=== PATIENT | male | born 1980 | race Hispanic/Latino ===

== ENCOUNTER 2019-03-21 06:57 | Inpatient (IN) | payer OTHER ==
[~2019-03-21] VITALS: Ht 177.8 cm; Wt 102.1 kg
--- OUTSIDE RECORDS SUMMARY | 2019-03-21 07:00 | XMS REPORT ---
Author Author [facility] Address Unknown Phone Unavailable Care Team Providers Care Case Technician Name Role Phone DR FLORI ANDERSON Unavailable Unavailable Problems This patient has no known problems. Allergies, Adverse Reactions, Alerts This patient has no known allergies or adverse reactions. Medications This patient has no known medications. Encounters Start Date/Time End Date/Time Encounter Type Admission Type Attending Clinicians Care Facility Care Department Encounter ID 2017-09-16 04:38:00 2017-09-16 08:15:00 Outpatient C FLORI ANDERSON [facility] [place] [facility] [id number]
[2019-03-21] MEDS ORDERED: MORPHINE SULFATE 2 MG/ML SYR 1ML IV STA ×2 (07:20→09:43)
[2019-03-21] MEDS ORDERED: ONDANSETRON HCL INJ 2MG/ML 2ML 2 MG/ML VIAL IV STA (07:20)
[2019-03-21] MEDS ORDERED: SODIUM CHLORIDE 0.9% 1000ML 1,000 ML IV STA (07:20)
[2019-03-21] MEDS ORDERED: DIATRIZOATE MEGL/DIATRIZOA SOD 30 ML BTL PO ONE (07:25)
--- NOTE | 2019-03-21 07:30 | NUR ---
INFORMED OF NEED FOR UA. CUP GIVEN. STATES CANT VOID AT THIS TIME. DECLINED CATHETER.
--- NOTE | 2019-03-21 07:37 | NUR ---
NOTIFIED CT PT READY
[2019-03-21 07:42] LABS: BASOPHILS % 0.1 % (0.0-1.0); EOSINOPHILS # (AUTO) 0.1 (0.0-0.4); EOSINOPHILS % 1.2 % (0.0-6.0); HEMATOCRIT 41.7 % (38.2-49.6); HEMOGLOBIN 14.7 g/dL (14.0-18.0); LYMPHOCYTES # (AUTO) 0.8 (1.0-3.2); LYMPHOCYTES % 10.7 % (18.0-39.1); MEAN CORPUSCULAR HEMOGLOBIN 31.1 pg (28-32); MEAN CORPUSCULAR HGB CONC 35.3 g/dL (31-35); MEAN CORPUSCULAR VOLUME 88.2 fL (81-99); MONOCYTES # (AUTO) 0.6 (0.2-0.8); MONOCYTES % 8.3 % (4.4-11.3); NEUTROPHILS % 79.3 % (38.7-80.0); PLATELET COUNT 149 x10e3/uL (140-360); RED BLOOD COUNT 4.73 x10e6/uL (4.3-5.7); RED CELL DISTRIBUTION WIDTH 11.9 % (11.7-14.4)
[2019-03-21 08:02] LABS: ALANINE AMINOTRANSFERASE 208 IU/L (0-55); ALBUMIN 3.6 g/dL (3.5-5.0); ALKALINE PHOSPHATASE 89 IU/L (40-150); ANION GAP 14.9 mmol/L (8-16); BLOOD UREA NITROGEN 7 mg/dL (7-26); BUN/CREATININE RATIO 7 (6-25); CALCIUM 9.6 mg/dL (8.4-10.2); CARBON DIOXIDE 23 mmol/L (22-29); CHLORIDE 103 mmol/L (98-107); CREATININE, SERUM 0.98 mg/dL (0.72-1.25); EST GLOMERULAR FILTRATION RATE > 60 ML/MIN (60-); GLUCOSE 120 mg/dL (74-118); POTASSIUM 3.9 mmol/L (3.5-5.1); SODIUM 137 mmol/L (136-145)
[2019-03-21 08:55] LABS: BILIRUBIN,URINE NEGATIVE (NEGATIVE); CLARITY,URINE CLEAR (CLEAR); COLOR,URINE YELLOW (YELLOW); KETONES,URINE NEGATIVE (NEGATIVE); LEUKOCYTE ESTERASE ,URINE NEGATIVE (NEGATIVE); NITRITE,URINE NEGATIVE (NEGATIVE); PROTEIN,URINE DIPSTICK NEGATIVE (NEGATIVE); URINE UROBILINOGEN 0.2 mg/dL (0.2 - 1)
--- NOTE | 2019-03-21 08:59 | Diagnostic Imaging Report ---
EXAM: CT Abdomen and Pelvis WITHOUT intravenous contrast INDICATION: Hematemesis, abdominal pain COMPARISON: None. TECHNIQUE: Abdomen and pelvis were scanned utilizing a multidetector helical scanner from the lung base to the pubic symphysis without administration of IV contrast. Coronal and sagittal reformations were obtained. IV CONTRAST: None ORAL CONTRAST: Water COMPLICATIONS: None RADIATION DOSE: Total DLP: 828.4 mGy*cm Dose modulation, iterative reconstruction, and/or weight based adjustment of the mA/kV was utilized to reduce the radiation dose to as low as reasonably achievable. FINDINGS: LOWER THORAX: Normal. HEPATOBILIARY: Diffuse hepatic steatosis. Hepatomegaly to 21 cm. No focal liver lesion. Unremarkable gallbladder. SPLEEN: No splenomegaly. PANCREAS: No focal masses or ductal dilatation. ADRENALS: No adrenal nodules. KIDNEYS/URETERS: No hydronephrosis, stones, or solid mass lesions. PELVIC ORGANS/BLADDER: Unremarkable. PERITONEUM / RETROPERITONEUM: No free air or fluid. LYMPH NODES: No lymphadenopathy. VESSELS: Unremarkable. GI TRACT: Sigmoid diverticulosis with focal area of wall thickening associated with several diverticulum in the mid sigmoid colon with adjacent pericolonic fat stranding. Small foci of extraluminal free air (series 2 image 77). No focal drainable fluid collection. BONES AND SOFT TISSUES: No acute osseous injury. No suspicious lytic or blastic lesions. IMPRESSION: Acute sigmoid diverticulitis with small foci of extraluminal air anteriorly consistent with perforation. No drainable diverticular abscess. Hepatomegaly and diffuse hepatic steatosis. Signed by: Geni Paul MD on 03/21/2019 8:55 AM
[2019-03-21] MEDS ORDERED: LEVOFLOXACIN 750MG/D5W 150ML 150 ML IV STA (09:07)
[2019-03-21 09:15] LABS: BACTERIA,URINE FEW /HPF; EPITHELIAL CELLS,URINE FEW /LPF; MUCUS,URINE RARE (RARE); WBC,URINE (MAN) 0-5 /HPF (0-5)
[2019-03-21] MEDS ORDERED: MORPHINE SULFATE 2 MG/ML SYR 1ML IV PRN (10:15)
--- NOTE | 2019-03-21 10:24 | NUR ---
dr. haroon ovalle in room with pt
--- NOTE | 2019-03-21 11:20 | Consultation ---
DATE OF CONSULTATION: REASON FOR CONSULTATION: Diverticulitis. HISTORY OF PRESENT ILLNESS: The patient is a pleasant 38-year-old male admitted to the hospital complaining of abdominal pain, located in the left lower quadrant, associated with nausea and vomiting. No diarrhea.Low grade temperature. No chills. The patient, in the past, had an episode of diverticulitis that did not require hospitalization. After he felt the yesterday , he thought he could have another bout of diverticulitis the reason for which he came to the hospital. In the emergency room, he was evaluated, had a CT scan that revealed sigmoid diverticulitis with small focus of air. No abscess. No drainable collection. White count was normal. PAST MEDICAL HISTORY: Unremarkable. PAST SURGICAL HISTORY: He has no previous surgeries. MEDICATIONS: He does not take any medicines. ALLERGIES: HE HAS NO KNOWN ALLERGIES. SOCIAL HISTORY: Does not drink. Does not smoke. PHYSICAL EXAMINATION: GENERAL: Reveals a 38-year-old male, in no acute distress. HEAD, EYES, EARS, NOSE, AND THROAT: Unremarkable. LUNGS: Clear. HEART: Reveals regular sinus rhythm. ABDOMEN: Soft and nontender. Examination of the abdomen reveals bowel sounds are present. There are no palpable masses. There is some tenderness on deep palpation in the left lower quadrant, but no rebound. EXTREMITIES: Reveal no clubbing, cyanosis, or edema. LABORATORY DATA: Has normal CBC and normal electrolytes. ASSESSMENT: Acute diverticulitis, uncomplicated. PLAN: The plan is to admit. Continue IV antibiotics. We will follow up the patient along with you. Thank you very much for the courtesy of this consultation. MD ZOIE Abreu/GABRIELLE /[id number] SUNG
[2019-03-21] MEDS: SODIUM CHLORIDE 0.9% 1000ML 1,000 ML IV SCH ×2 (12:05→18:40)
[2019-03-21] MEDS: METRONIDAZOLE 500MG/NS 100ML 100 ML IV SCH ×2 (12:05→19:37)
--- NOTE | 2019-03-21 12:25 | NUR ---
RCD PT FROM ER BY BED PT IS ALERT AND ORIENTED VITALS CHECKED PT RESTING ON BED ADMISSION ASSESSMENT DONE PT SAID STARTED THE ABDOMINAL PAIN ON TUESDAY WITH NAUSEA ,VOMITING AND FEVER AND DIARRHEA NOW HE DENIED NAUSEA,VOMITING AND DIARRHEA HE C/O ABDOMINAL PAIN ON LEFT SIDE OF ABDOMEN PT NPO AND ON IVFLUID AND IV ANTIBIOTICS FAMILY AT BED SIDE BED LOW AND LOCKED CALL LIGHT IN REACH
[2019-03-21 14:00] VITALS: BP 138/85
--- NOTE | 2019-03-21 14:00 | NUR ---
SCDS ON BOTH LEGS
[2019-03-21 15:00] VITALS: BP 122/84
--- NOTE | 2019-03-21 15:01 | NUR ---
H&P cc: abdominal pain HPI: 38yoM, PCP at [place], developed fever for 4 days. ALso severe abdominal pain. Found to have acute diverticulitis. Pt dx with diverticulosis 1.5 years ago. PMH: diverticulosis dx 2017 PSHxx: lower back, B/L legs Allergies; see emr FH/SH: ; no cigs meds; see MAR ROS: no cp/sob/dizziness/SHOOK/vision changes/skin rash/back pain v/s; revd PE tired appearing anicteric ns1s2 mod bs soft ND; LEFT LOWER ABDOMEN TENDER no e/t skin dry n. affect labs/meds; revd A/P: Perforated sigmoid diverticulitis Hepatomegaly Obesity BMI 32.3 PLAN IV abx; IVF: Sx consult; GI consult SCD/ppi Dispo: Sandeep Bauer MD, PhD.
[2019-03-21 15:16] LABS: CHOL/HDL RATIO 8.6 (3.9-4.7)
[2019-03-21 15:38] VITALS: BP 122/84
[2019-03-21] MEDS: ONDANSETRON HCL INJ 2MG/ML 2ML 2 MG/ML VIAL IV PRN ×2 (17:35→21:21)
[2019-03-21] MEDS: HYDROMORPHONE 1MG/1ML INJ IV PRN ×2 (17:35→21:21)
[2019-03-21] MEDS: PIPER-TAZ 3.375 GM 50 ML IV SCH (17:44)
--- NOTE | 2019-03-21 19:05 | NUR ---
PT RESTING ON BED BED SIDE REPORT GIVEN TO ONCOMING NURSE
[2019-03-21 20:00] VITALS: BP 115/68
[2019-03-21 21:00] VITALS: BP 115/68
[2019-03-22] VITALS (8 sets, daily range): BP systolic 115–135; BP diastolic 70–83
[2019-03-22] MEDS: PIPER-TAZ 3.375 GM 50 ML IV SCH ×5 (00:06→23:59)
[2019-03-22] MEDS ORDERED: ZOLPIDEM TARTRATE 5 MG TAB PO PRN (00:45)
--- NOTE | 2019-03-22 00:47 | NUR ---
Dr. España here for rounding. Orders received.
[2019-03-22] MEDS: MELATONIN 5 MG TABLET PO PRN ×2 (01:02→22:16)
[2019-03-22] MEDS: SODIUM CHLORIDE 0.9% 1000ML 1,000 ML IV SCH ×3 (04:34→14:40)
[2019-03-22] MEDS: METRONIDAZOLE 500MG/NS 100ML 100 ML IV SCH ×3 (04:34→20:31)
[2019-03-22 05:16] LABS: BASOPHILS % 0.2 % (0.0-1.0); EOSINOPHILS # (AUTO) 0.1 (0.0-0.4); HEMATOCRIT 35.6 % (38.2-49.6); HEMOGLOBIN 12.2 g/dL (14.0-18.0); MEAN CORPUSCULAR HEMOGLOBIN 31.2 pg (28-32); MEAN CORPUSCULAR HGB CONC 34.3 g/dL (31-35); MONOCYTES # (AUTO) 0.8 (0.2-0.8); MONOCYTES % 12.7 % (4.4-11.3); NEUTROPHILS # (AUTO) 4.2 (2.1-6.9); NEUTROPHILS % 67.6 % (38.7-80.0); PLATELET COUNT 145 x10e3/uL (140-360); RED BLOOD COUNT 3.91 x10e6/uL (4.3-5.7); RED CELL DISTRIBUTION WIDTH 12.1 % (11.7-14.4)
[2019-03-22] MEDS: ONDANSETRON HCL INJ 2MG/ML 2ML 2 MG/ML VIAL IV PRN ×2 (05:34→22:17)
[2019-03-22] MEDS: HYDROMORPHONE 1MG/1ML INJ IV PRN ×2 (05:34→21:00)
[2019-03-22 05:44] LABS: ALANINE AMINOTRANSFERASE 117 IU/L (0-55); ALBUMIN 2.9 g/dL (3.5-5.0); ALBUMIN/GLOBULIN RATIO 0.9 (0.8-2.0); ALKALINE PHOSPHATASE 74 IU/L (40-150); ANION GAP 12.8 mmol/L (8-16); BLOOD UREA NITROGEN 8 mg/dL (7-26); BUN/CREATININE RATIO 8 (6-25); CALCIUM 9.1 mg/dL (8.4-10.2); CARBON DIOXIDE 27 mmol/L (22-29); CHLORIDE 102 mmol/L (98-107); CREATININE, SERUM 1.04 mg/dL (0.72-1.25); EST GLOMERULAR FILTRATION RATE > 60 ML/MIN (60-); GLUCOSE 99 mg/dL (74-118); POTASSIUM 3.8 mmol/L (3.5-5.1); SODIUM 138 mmol/L (136-145)
[2019-03-22 06:04] LABS: CHOL/HDL RATIO 9.4 (3.9-4.7)
[2019-03-22] MEDS ORDERED: PREDNISONE10 MG PO (06:06)
--- NOTE | 2019-03-22 07:00 | NUR ---
RCD PT AT BED PT IS ALERT AND ORIENTED PT RESTING ON BED IV PATENT AND RUNNING 150 ML /HR PT NPO FAMILY AT BED SIDE BED LOW AND LOCKED CALL LIGHT IN REACH
--- NOTE | 2019-03-22 07:20 | NUR ---
IM- progress note O/N no events ROS: no cp/sob/dizziness/SHOOK/vision changes/skin rash/back pain v/s; revd PE tired appearing anicteric ns1s2 mod bs soft ND; LEFT LOWER ABDOMEN TENDER no e/t skin dry n. affect labs/meds; revd A/P: Perforated sigmoid diverticulitis Hepatomegaly Obesity BMI 32.3 PLAN IV abx; IVF: Sx consult; GI consult SCD/ppi Dispo: 03/22 cont care. Gout flare of right great toe- solumedrol 2 doses; check uric acid level. Sandeep Bauer MD, PhD.
[2019-03-22] MEDS: PANTOPRAZOLE 40 MG 10ML VIAL IV SCH (08:43)
[2019-03-22] MEDS: METHYLPREDNISOLONE SOD SUCC 40 MG/ML VIAL 1ML IV SCH ×2 (09:00→20:31)
[2019-03-22] MEDS ORDERED: LEVOFLOXACIN 500MG/D5W 100ML 100 ML IV SCH (09:00)
[2019-03-22] MEDS: LEVOFLOXACIN 500MG/D5W 100ML 100 ML IV SCH (09:26)
--- NOTE | 2019-03-22 10:22 | NUR ---
PT C/O SINUS PROBLEM HE NEED SOME MEDS PAGED DR JON AND LEFT THE MESSAGE
[2019-03-22] MEDS: FLUTICASONE PROPIONATE NASAL SPRAY NS SCH ×2 (17:20→20:32)
--- NOTE | 2019-03-22 18:39 | NUR ---
PT RESTING ON BED BED SIDE REPORT GIVEN TO ONCOMING NURSE
[2019-03-23] VITALS (8 sets, daily range): BP systolic 106–126; BP diastolic 53–86
[2019-03-23] MEDS: SODIUM CHLORIDE 0.9% 1000ML 1,000 ML IV SCH ×4 (04:00→20:00)
[2019-03-23] MEDS: METRONIDAZOLE 500MG/NS 100ML 100 ML IV SCH ×3 (04:50→20:00)
[2019-03-23 05:21] LABS: ANION GAP 15.1 mmol/L (8-16); BLOOD UREA NITROGEN 10 mg/dL (7-26); BUN/CREATININE RATIO 12 (6-25); CALCIUM 9.3 mg/dL (8.4-10.2); CARBON DIOXIDE 22 mmol/L (22-29); CHLORIDE 106 mmol/L (98-107); CREATININE, SERUM 0.83 mg/dL (0.72-1.25); EST GLOMERULAR FILTRATION RATE > 60 ML/MIN (60-); GLUCOSE 140 mg/dL (74-118); POTASSIUM 4.1 mmol/L (3.5-5.1); SODIUM 139 mmol/L (136-145)
[2019-03-23] MEDS: PIPER-TAZ 3.375 GM 50 ML IV SCH ×3 (06:00→17:29)
--- NOTE | 2019-03-23 07:10 | NUR ---
walking rounds completed and shift change report received from overnight cashier RN; will continue to monitor.
[2019-03-23] MEDS: FLUTICASONE PROPIONATE NASAL SPRAY NS SCH ×3 (09:20→21:00)
[2019-03-23] MEDS: PANTOPRAZOLE 40 MG 10ML VIAL IV SCH (09:27)
[2019-03-23] MEDS: ONDANSETRON HCL INJ 2MG/ML 2ML 2 MG/ML VIAL IV PRN ×2 (09:28→20:00)
[2019-03-23] MEDS: HYDROMORPHONE 1MG/1ML INJ IV PRN ×2 (09:28→21:15)
[2019-03-23] MEDS ORDERED: DICYCLOMINE HCL 20 MG TAB PO PRN (10:00)
--- NOTE | 2019-03-23 12:22 | NUR ---
IM- progress note O/N no events ROS: no cp/sob/dizziness/SHOOK/vision changes/skin rash/back pain v/s; revd PE tired appearing anicteric ns1s2 mod bs soft ND; LEFT LOWER ABDOMEN TENDER no e/t skin dry n. affect labs/meds; revd A/P: Perforated sigmoid diverticulitis Hepatomegaly Obesity BMI 32.3 PLAN IV abx; IVF: Sx consult; GI consult SCD/ppi Dispo: 03/22 cont care. Gout flare of right great toe- solumedrol 2 doses; check uric acid level. 03/23 New pain- keep NPO; check CBC; reassess. Sandeep Bauer MD, PhD.
[2019-03-23] MEDS: LEVOFLOXACIN 500MG/D5W 100ML 100 ML IV SCH (12:28)
[2019-03-23 12:39] LABS: BASOPHILS % 0.1 % (0.0-1.0); HEMATOCRIT 37.3 % (38.2-49.6); LYMPHOCYTES # (AUTO) 0.9 (1.0-3.2); MEAN CORPUSCULAR HGB CONC 34.9 g/dL (31-35); MEAN CORPUSCULAR VOLUME 88.8 fL (81-99); MONOCYTES # (AUTO) 0.7 (0.2-0.8); MONOCYTES % 7.1 % (4.4-11.3); NEUTROPHILS # (AUTO) 7.7 (2.1-6.9); NEUTROPHILS % 82.2 % (38.7-80.0); PLATELET COUNT 216 x10e3/uL (140-360); RED CELL DISTRIBUTION WIDTH 11.9 % (11.7-14.4)
--- NOTE | 2019-03-23 14:10 | NUR ---
Received call from Helen with [facility] she's helping DC liaison planner Lissette - [phone]. [facility] pt has benefits for: jail, home health, DME, and short term rehab. Some HH in network: [facility]. [facility] to call with any assistance needed for discharge planning.
--- NOTE | 2019-03-23 19:27 | NUR ---
Patient received lying in bed. AAO x 3. Family at bedside. Patient had no complaints of pain. Respirations even and non-labored. Fall precautions implemented. IVF infusing at 100 cc /hr. Patient instructed to call for assistance when needed. Call light within reach
[2019-03-23] MEDS: MELATONIN 5 MG TABLET PO PRN (22:48)
[2019-03-24] VITALS (9 sets, daily range): BP systolic 95–120; BP diastolic 54–66
[2019-03-24] MEDS: PIPER-TAZ 3.375 GM 50 ML IV SCH ×4 (00:49→18:01)
[2019-03-24] MEDS: METRONIDAZOLE 500MG/NS 100ML 100 ML IV SCH ×3 (03:55→21:37)
[2019-03-24] MEDS: ONDANSETRON HCL INJ 2MG/ML 2ML 2 MG/ML VIAL IV PRN ×2 (09:11→14:34)
[2019-03-24] MEDS: FLUTICASONE PROPIONATE NASAL SPRAY NS SCH ×3 (09:18→21:37)
[2019-03-24] MEDS: PANTOPRAZOLE 40 MG 10ML VIAL IV SCH (09:18)
[2019-03-24] MEDS: LEVOFLOXACIN 500MG/D5W 100ML 100 ML IV SCH (09:18)
--- NOTE | 2019-03-24 10:00 | NUR ---
IM- progress note O/N no events ROS: no cp/sob/dizziness/SHOOK/vision changes/skin rash/back pain v/s; revd PE tired appearing anicteric ns1s2 mod bs soft ND; LEFT LOWER ABDOMEN TENDER no e/t skin dry n. affect labs/meds; revd A/P: Perforated sigmoid diverticulitis Hepatomegaly Obesity BMI 32.3 PLAN IV abx; IVF: Sx consult; GI consult SCD/ppi Dispo: 03/22 cont care. Gout flare of right great toe- solumedrol 2 doses; check uric acid level. 03/23 New pain- keep NPO; check CBC; reassess. 03/24 cont care. Sandeep Bauer MD, PhD.
[2019-03-24] MEDS: SODIUM CHLORIDE 0.9% 1000ML 1,000 ML IV SCH ×3 (14:34→21:37)
--- NOTE | 2019-03-24 19:25 | NUR ---
Patient received lying in bed. AAO x 4. No acute distress noted. Fall precautions implemented. Patient instructed to call for assistance when needed. Call light within reach.
[2019-03-24] MEDS: MELATONIN 5 MG TABLET PO PRN (23:39)
[2019-03-25] MEDS: PIPER-TAZ 3.375 GM 50 ML IV SCH ×2 (00:18→06:07)
[2019-03-25 00:19] VITALS: BP 110/59
--- NOTE | 2019-03-25 01:41 | NUR ---
Dr. Marialuisa España here to see patient. New order received for Bentyl 10 mg TID .
[2019-03-25] MEDS ORDERED: DICYCLOMINE HCL 10 MG CAP PO ONE (01:45)
--- NOTE | 2019-03-25 02:15 | NUR ---
IV on left arm infiltrated. New IV inserted in left hand 20G. Patient tolerated well.
[2019-03-25] MEDS: SODIUM CHLORIDE 0.9% 1000ML 1,000 ML IV SCH (02:40)
--- NOTE | 2019-03-25 02:47 | NUR ---
Stool sample sent to lab for C-Diff analysis.
[2019-03-25] MEDS: METRONIDAZOLE 500MG/NS 100ML 100 ML IV SCH ×2 (04:20→11:11)
--- NOTE | 2019-03-25 04:28 | NUR ---
Patient refused 0400 vital signs.
[2019-03-25 05:54] LABS: ALANINE AMINOTRANSFERASE 45 IU/L (0-55); ALBUMIN 2.9 g/dL (3.5-5.0); ALBUMIN/GLOBULIN RATIO 1.1 (0.8-2.0); ALKALINE PHOSPHATASE 53 IU/L (40-150); ANION GAP 11.6 mmol/L (8-16); BLOOD UREA NITROGEN 10 mg/dL (7-26); BUN/CREATININE RATIO 10 (6-25); CALCIUM 8.8 mg/dL (8.4-10.2); CARBON DIOXIDE 26 mmol/L (22-29); CHLORIDE 107 mmol/L (98-107); CREATININE, SERUM 0.98 mg/dL (0.72-1.25); EST GLOMERULAR FILTRATION RATE > 60 ML/MIN (60-); GLUCOSE 91 mg/dL (74-118); POTASSIUM 3.6 mmol/L (3.5-5.1); SODIUM 141 mmol/L (136-145)
--- NOTE | 2019-03-25 07:00 | NUR ---
Shift report given to oncoming nurse.
[2019-03-25 07:10] VITALS: BP 103/55
[2019-03-25 07:54] VITALS: BP 103/55
[2019-03-25] MEDS ORDERED: DICYCLOMINE HCL 10 MG CAP PO SCH (09:00)
[2019-03-25] MEDS: FLUTICASONE PROPIONATE NASAL SPRAY NS SCH (09:11)
[2019-03-25] MEDS: PANTOPRAZOLE 40 MG 10ML VIAL IV SCH (09:11)
[2019-03-25] MEDS: LEVOFLOXACIN 500MG/D5W 100ML 100 ML IV SCH (09:12)
[2019-03-25 11:02] VITALS: BP 110/70
[2019-03-25] MEDS ORDERED: ALLOPURINOL 100 MG TAB PO SCH (11:05)
[2019-03-25] MEDS ORDERED: AUGMENTIN 500-1 EACH PO (12:25)
--- NOTE | 2019-03-25 13:05 | NUR ---
Patient finished eating. Tolerating GI soft. Denies nausea. Denies abdominal discomfort. Per patient cleared to discharge. Paged Dr.James Mejia to notify of patient's status.
--- NOTE | 2019-03-25 14:18 | NUR ---
Received discharge orders. Per "I will fax rx for bentyl and allopurinol to patient's pharmacy." Patient aware. Voiced understanding.
--- NOTE | 2019-03-25 14:25 | NUR ---
Left hand IV discontinued. No signs of infiltration noted. 2x2 gauze and tape placed. Accompanied by and PCT to personal car. Refused wheelchair. AAOX4 to time, person, place, situation. Respirations even and unlabored. Denies pain. Discharge instructions, rx (for augmentin), and all personal belongings taken with patient.
[2019-03-26] MEDS ORDERED: ALLOPURINOL 100 MG TAB PO SCH (09:00)
== END 2019-03-25 14:27 | disposition home or self-care (01) | DRG 392 ==
LOC: ER 06:57 → ERHOLD 11:08 → MED/SURG2 12:33
PROVIDERS: ADMIT Internal Medicine; ATTEND Internal Medicine
DX: K57.20 Diverticulitis of large intestine with perforation and abscess without bleeding (principal); R16.0 Hepatomegaly, not elsewhere classified; E66.9 Obesity, unspecified; Z68.32 Body mass index [BMI] 32.0-32.9, adult
CPT/HCPCS: 36415; 74176; 80048; 80053; 80061; 81001; 82948; 83036; 83605; 84550; 85025; 87040; 87493; 93005; 99284; J1170; J1956; J2270; J2405; J2543; J2920; J7030

== ENCOUNTER 2020-02-26 16:13 | Emergency (ER) | payer OTHER ==
[~2020-02-26] VITALS: Ht 177.8 cm; Wt 102.1 kg
[~2020-02-26 16:13] MED LIST: AUGMENTIN 500-1 EACH PO; PREDNISONE10 MG PO
--- OUTSIDE RECORDS SUMMARY | 2020-02-26 17:05 | XMS REPORT | Continuity of Care Document ---
Author Author [facility] Organization [facility] Address [address] [place] [address] Phone Unavailable Care Team Providers Care Heel Cover Splitter Name Role Phone NONSTAFF PCP Unavailable KATHARINA GOTTI Attwaqass Unavailable ESSJORDIN, DR RUBY Attphyanahy Unavailable ESSES, DR RUYB Admalejo Unavailable Payers Payer Name Policy Type Policy Number Effective Date Expiration Date Anahy [place] Pos [id number] 2016 00:00:00 [facility] Problems Condition Name Condition Details Condition Category Status Onset Date Resolution Date Last Treatment Date Treating Clinician Comments Source Diverticulitis of large intestine with perforation Div erticulitis of colon with perforation Problem Active [facility] Allergies, Adverse Reactions, Alerts This patient has no known allergies or adverse reactions. Medications Ordered Medication Name Filled Medication Name Start Date Stop Da te Current Medication? Ordering Clinician Indication Dosage Frequency Signature (SIG) Comments Components Source Amoxicillin/Potassium Clav (Augmentin 500-125 Tablet) 1 Each Tablet Amoxicillin/Potassium Clav (Augmentin 500-125 Tablet) 1 Each Tablet Yes 500 Every 8 Hours [facility] Prednisone 10 Mg Tab Prednisone 10 Mg Tab Yes 20 Three Times A Day as needed for Moderate Pain (4-6) [facility] Procedures Procedure Date / Time Performed Performing Clinician Sour e CT of abdomen and pelvis without contrast 2019-03-21 00:00:00 KATHARINA LUCAS [facility] Encounters Start Date/Time End Date/Time Encounter Type Admission Type [facility] Facility Care Department Encounter ID Source 2019-03-21 11:08:00 2019-03-25 14:27:00 Discharged Inpatient 1 KATHARINA GOTTI [id number] 2017-09-16 04:38:00 2017-09-16 08:15:[address] [facility] [id number] [facility] Results Test Description Test Time Test Comments Results Result Comments Source Clostridium Difficile Toxin A & B 2019-03-25 12:12:00 Test Item Clostridium Difficile Toxin A & B (test code = 164957840) NEGATIVE NEGATIVE Testing on stool aspirate specimens is outside carpet layer claims since specime n type not validated on this assay.[facility] Hgjpx2993-60-40 05:54:00* Test Item Value Reference Range Interpretation Comments Sodium Level (test code = 2951-2) 141 136-145 [facility] CenterPotassium Fecws9357-07-87 05:54:00* Test Item Value Reference Range Interpretation Comments Potassium Level (test code = 2823-3) 3.6 3.5-5.1 [facility] CenterChloride Pdjhz0741-22-74 05:54:00* Test Item Value Reference Range Interpretation Comments Chloride Level (test code = 2075-0) 107 98-107 [facility] CenterCarbon Dioxide Qehty5250-55-18 05:54:00* Test Item Value Reference Range Interpretation Comments Carbon Dioxide Level (test code = 2028-9) 26 22-29 [facility] CenterAnion Exo7040-38-15 05:54:00* Test Item Value Reference Range Interpretation Comments Anion Gap (test code = 82463-4) 11.6 8-16 [facility] CenterBlood Urea Loufnqqx9128-14-42 05:54:00* Test Item Value Reference Range Interpretation Comments Blood Urea Nitrogen (test code = 3094-0) 10 7-26 [facility] CenterCreatinine2019-11-10 05:54:00* Test Item Value Reference Range Interpretation Comments Creatinine (test code = 2160-0) 0.98 0.72-1.25 [facility] CenterBUN/Creatinine Rmwrz0689-01-11 05:54:00* Test Item Value Reference Range Interpretation Comments BUN/Creatinine Ratio (test code = 3097-3) 10 6-25 [facility] CenterEstimat Glomerular Filtration Rate 2019-03-25 05:54:00* Test Item Value Reference Range Interpretation Comments Estimat Glomerular Filtration Rate (test code = 333307355) > 60 >60 Ranges were taken from the National Kidney Disease Education Program and the [facility] Kidney Foundation literature.Reference ranges:60 or greater: Imbzxx11-13 ( for 3 consecutive months): Chronic kidney disease 15 or less: Kidney failureVal Verde Regional Medical CenterGlucose Eoasx2814-03-55 05:54:00* Test Item Value Reference Range Interpretation Comments Glucose Level (test code = ZFF3440) 91 74-118 [facility] CenterCalcium Pqwbi5189-39-46 05:54:00* Test Item Value Reference Range Interpretation Comments Calcium Level (test code = 00295-4) 8.8 8.4-10.2 [facility] CenterT[facility] Iekbxptzg6803-77-00 05:54:00* Test Item Value Reference Range Interpretation Comments Total Bilirubin (test code = 1975-2) 0.4 0.2-1.2 [facility] CenterAspartate Amino Transf (AST/SGOT) 2019-03-25 05:54:00* Test Item Value Reference Range Interpretation Comments Aspartate Amino Transf (AST/SGOT) (test code = Aspartate Amino Transf (AST/SGOT)) 23 5-34 [facility] CenterAlanine Aminotransferase (ALT/SGPT) 2019-03-25 05:54:00* Test Item Value Reference Range Interpretation Comments Alanine Aminotransferase (ALT/SGPT) (test code = 1742-6) 45 0-55 [facility] CenterTotal Mpvqsin6939-65-22 05:54:00* Test Item Value Reference Range Interpretation Comments Total Protein (test code = 2885-2) 5.6 6.5-8.1 L [facility] CenterAlbumin2019-11-10 05:54:00* Test Item Value Reference Range Interpretation Comments Albumin (test code = 1751-7) 2.9 3.5-5.0 L [facility] CenterGlobulin2019-11-10 05:54:00* Test Item Value Reference Range Interpretation Comments Globulin (test code = 42315-8) 2.7 2.3-3.5 [facility] CenterAlbumin/Globulin Efolv4630-87-03 05:54:00 * Test Item Value Reference Range Interpretation Comments Albumin/Globulin Ratio (test code = 1759-0) 1.1 0.8-2.0 [facility] CenterAlkaline Xkjelicagld4573-05-82 05:54:00* Test Item Value Reference Range Interpretation Comments Alkaline Phosphatase (test code = 6768-6) 53 40-150 [facility] CenterBlood Mkdmsno2829-18-53 07:35:00* Test Item Value Reference Range Interpretation Comments Blood Culture (test code = 01175502) NO GROWTH AFTER 72 HOURS [facility] CenterWhite Blood Iklas1175-52-26 12:44:00* Test Item Value Reference Range Interpretation Comments White Blood Count (test code = 6690-2) 9.40 4.8-10.8 [facility] CenterRed Blood Bensy6411-67-09 12:44:00* Test Item Value Reference Range Interpretation Comments Red Blood Count (test code = 789-8) 4.20 4.3-5.7 L [facility] CenterHemoglobin2019-11-08 12:44:00* Test Item Value Reference Range Interpretation Comments Hemoglobin (test code = 80513-7) 13.0 14.0-18.0 L [facility] CenterHematocrit2019-11-08 12:44:00* Test Item Value Reference Range Interpretation Comments Hematocrit (test code = 4544-3) 37.3 38.2-49.6 L [facility] CenterMean Corpuscular Jntxbi1399-15-32 12:44:00* Test Item Value Reference Range Interpretation Comments Mean Corpuscular Volume (test code = 787-2) 88.8 81-99 [facility] CenterMean Corpuscular Fltxflfnns1432-32-40 12:44:00* Test Item Value Reference Range Interpretation Comments Mean Corpuscular Hemoglobin (test code = 785-6) 31.0 28-32 [facility] CenterMean Corpuscular Hemoglobin Concent 2019-03-23 12:44:00* Test Item Value Reference Range Interpretation Comments Mean Corpuscular Hemoglobin Concent (test code = 786-4) 34.9 31-35 [facility] CenterRed Cell Distribution Ojihh1260-80-33 12:44:00* Test Item Value Reference Range Interpretation Comments Red Cell Distribution Width (test code = 30525-2) 11.9 11.7 -14.4 [facility] CenterPlatelet Lbegh3366-07-99 12:44:00* Test Item Value Reference Range Interpretation Comments Platelet Count (test code = 777-3) 216 140-360 [facility] CenterNeutrophils (%) (Auto)2019-03-23 12:44:00 * Test Item Value Reference Range Interpretation Comments Neutrophils (%) (Auto) (test code = 74920-5) 82.2 38.7-80.0 H [facility] CenterLymphocytes (%) (Auto)2019-03-23 12:44:00 * Test Item Value Reference Range Interpretation Comments Lymphocytes (%) (Auto) (test code = 736-9) 10.0 18.0-39.1 L [facility] CenterMonocytes (%) (Auto)2019-03-23 12:44:00* Test Item Value Reference Range Interpretation Comments Monocytes (%) (Auto) (test code = 5905-5) 7.1 4.4-11.3 [facility] CenterEosinophils (%) (Auto)2019-03-23 12:44:00 * Test Item Value Reference Range Interpretation Comments Eosinophils (%) (Auto) (test code = 713-8) 0.0 0.0-6.0 [facility] CenterBasophils (%) (Auto)2019-03-23 12:44:00* Test Item Value Reference Range Interpretation Comments Basophils (%) (Auto) (test code = 706-2) 0.1 0.0-1.0 [facility] CenterIM GRANULOCYTES %2019-03-23 12:44:00* Test Item Value Reference Range Interpretation Comments IM GRANULOCYTES % (test code = IM GRANULOCYTES %) 0.6 0.0- 1.0 [facility] CenterNeutrophils # (Auto)2019-03-23 12:44:00* Test Item Value Reference Range Interpretation Comments Neutrophils # (Auto) (test code = 751-8) 7.7 2.1-6.9 H [facility] CenterLymphocytes # (Auto)2019-03-23 12:44:00* Test Item Value Reference Range Interpretation Comments Lymphocytes # (Auto) (test code = 72700-4) 0.9 1.0-3.2 L [facility] CenterMonocytes # (Auto)2019-03-23 12:44:00* Test Item Value Reference Range Interpretation Comments Monocytes # (Auto) (test code = 742-7) 0.7 0.2-0.8 [facility] CenterEosinophils # (Auto)2019-03-23 12:44:00* Test Item Value Reference Range Interpretation Comments Eosinophils # (Auto) (test code = 711-2) 0.0 0.0-0.4 [facility] CenterBasophils # (Auto)2019-03-23 12:44:00* Test Item Value Reference Range Interpretation Comments Basophils # (Auto) (test code = 704-7) 0.0 0.0-0.1 [facility] CenterAbsolute Immature Granulocyte (auto 2019-03-23 12:44:00* Test Item Value Reference Range Interpretation Comments Absolute Immature Granulocyte (auto (trupti t code = Absolute Immature Granulocyte (auto) 0.06 0-0.1 [facility] CenterHecedars[facility] A IgM Vwhsynzv0947-60-53 08:52:00* Test Item Value Reference Range Interpretation Comments Hepatitis A IgM Antibody (test code = 58549-3) Negative Negativ e [facility] B Surface Kijwcdi9093-75-58 08:52:00* Test Item Value Reference Range Interpretation Comments Hepatitis B Surface Antigen (test code = 5196-1) Negative Negat alicia [facility] B Core IgM Yhgqwfld1534-08-95 08:52:00* Test Item Value Reference Range Interpretation Comments Hepatitis B Core IgM Antibody (test code = 30121-4) Negative Ne gative [facility] CenterHepatitis C Yafykcvw6167-16-66 08:52:00* Test Item Value Reference Range Interpretation Comments Hepatitis C Antibody (test code = 65303-8) <0.1 0.0-0.9 Negative: < 0.8 Indeterminate: 0.8 - 0.9 Positive: > 0.9 The CDC recommends that a positive HCV antibody result be followed up with a HCV Nucleic Acid Amplification test (913252).Performed at: - [facility] [id number] Director: Jai Morocho MD, Phone: [phone] Verde Regional Medical CenterBedside Ibywjis0975-45-78 21:12:00* Test Item Value Reference Range Interpretation Comments Bedside Glucose (test code = 46695-9) 106 70-120 Meter ID: [id number] Specialty Hospitals of AmericaUric Oapy8936-18-37 11:47:00* Test Item Value Reference Range Interpretation Comments Uric Acid (test code = 3084-1) 5.9 4.8-8.0 [facility] CenterTriglycerides Repzx7017-17-51 06:05:00* Test Item Value Reference Range Interpretation Comments Triglycerides Level (test code = 2571-8) 222 0-149 H [facility] CenterCholesterol Jetof3229-67-49 06:05:00* Test Item Value Reference Range Interpretation Comments Cholesterol Level (test code = 2093-3) 159 0-199 Less than 200 mg/dL Low Izpi804 - 239 mg/dL Borderline Pjri537 m g/dl and greater High Risk [facility] CenterLDL Lqfnxqvwcuu1363-92-64 06:05:00* Test Item Value Reference Range Interpretation Comments LDL Cholesterol (test code = 2089-1) 98 60-130 [facility] CenterHDL Pzyznaoyefa0549-30-87 06:05:00* Test Item Value Reference Range Interpretation Comments HDL Cholesterol (test code = 2085-9) 17 40-60 L [facility] CenterCholesterol/HDL Dcezk3834-45-41 06:05:00 * Test Item Value Reference Range Interpretation Comments Cholesterol/HDL Ratio (test code = 9830-1) 9.4 3.9-4.7 H [facility] CenterHemoglobin A1c Wflsavc5169-51-47 05:26:00 * Test Item Value Reference Range Interpretation Comments Hemoglobin A1c Percent (test code = Hemoglobin A1c Percent) 5.1 4.0-7.0 [facility] CenterUrine MZC5978-92-03 09:17:00* Test Item Value Reference Range Interpretation Comments Urine WBC (test code = 5821-4) 0-5 0-5 [facility] CenterUrine PRP8238-50-40 09:17:00* Test Item Value Reference Range Interpretation Comments Urine RBC (test code = 11116-2) 6-10 0-5 H [facility] CenterUrine Fmppoihf6535-13-86 09:17:00* Test Item Value Reference Range Interpretation Comments Urine Bacteria (test code = 01406-8) FEW NONE [facility] CenterUrine Epithelial Zwwub6047-40-40 09:17:00 * Test Item Value Reference Range Interpretation Comments Urine Epithelial Cells (test code = 61414-1) FEW NONE [facility] CenterUrine Lqlzu1014-83-31 09:17:00* Test Item Value Reference Range Interpretation Comments Urine Mucus (test code = 8247-9) RARE RARE [facility] CenterUrine Nrllc6917-41-86 09:05:00* Test Item Value Reference Range Interpretation Comments Urine Color (test code = 5778-6) YELLOW YELLOW [facility] CenterUrine Afwgzrq8455-77-84 09:05:00* Test Item Value Reference Range Interpretation Comments Urine Clarity (test code = 75489-2) CLEAR CLEAR [facility] CenterUrine Specific Tzjtyjr8819-93-98 09:05:00 * Test Item Value Reference Range Interpretation Comments Urine Specific [place] (test code = 5811-5) 1.010 1.010-1.02 5 [facility] CenterUrine yJ3480-79-90 09:05:00* Test Item Value Reference Range Interpretation Comments Urine pH (test code = 50756-7) 6.5 5-7 [facility] CenterUrine Leukocyte Nbccvjvf3381-81-06 09:05:00* Test Item Value Reference Range Interpretation Comments Urine Leukocyte Esterase (test code = 17088-2) NEGATIVE NEGATIV E [facility] CenterUrine Cialojj0557-67-91 09:05:00* Test Item Value Reference Range Interpretation Comments Urine Nitrite (test code = 74019-5) NEGATIVE NEGATIVE [facility] CenterUrine Kpfnevb3255-02-91 09:05:00* Test Item Value Reference Range Interpretation Comments Urine Protein (test code = 12242-0) NEGATIVE NEGATIVE [facility] CenterUrine Glucose (UA)2019-03-21 09:05:00* Test Item Value Reference Range Interpretation Comments Urine Glucose (UA) (test code = 58760-2) NEGATIVE NEGATIVE [facility] CenterUrine Ahcnwvi4074-45-51 09:05:00* Test Item Value Reference Range Interpretation Comments Urine Ketones (test code = 46154-6) NEGATIVE NEGATIVE [facility] CenterUrine Fvsndomtjwun3212-69-45 09:05:00* Test Item Value Reference Range Interpretation Comments Urine Urobilinogen (test code = 73392-1) 0.2 0.2-1 [facility] CenterUrine Zrltlonjg3503-78-65 09:05:00* Test Item Value Reference Range Interpretation Comments Urine Bilirubin (test code = 1977-8) NEGATIVE NEGATIVE [facility] CenterUrine Ldmjr7473-90-20 09:05:00* Test Item Value Reference Range Interpretation Comments Urine Blood (test code = 79282-4) TRACE NEGATIVE [facility] CenterCT ABDOMEN/PELVIS FQ3005-73-13 08:50:00 [facility] [address] [place] [address] Patient Name: SHERLY BERRY MR #: [id number] : 1980 Age/Sex: 38/M Req #: [id number] Adm Physician: Ordered by: KATHARINA GOTTI MD Report #: [id number] Location: ER Room/Bed: Procedure: [id number] CT/C T ABDOMEN/PELVIS WO Exam Date: 03/21/19 Exam Time: 0 740 REPORT STATUS: Signed EXAM: CT Abdomen and Pelvis WITHOUT intravenous contrast INDICATION: Hematemesi s, abdominal pain COMPARISON: None. TECHNIQUE: Abdomen and pelvis were scanned utilizing a multidetector helical scanner from the lung base to the p ubic symphysis without administration of IV contrast. Coronal and sagittal ref ormations were obtained. IV CONTRAST: None ORAL CONTRAST: Water COMPLICATIONS: None RADIATION DOSE: Total DLP: 828.4 mGy*cm Dose modulation, iterative reconstruction, and/or weight based adjustment of the mA/kV was utilized to reduce the radiation dose to as low as reasonably achievable. FINDINGS: LOWER THORAX: Normal. HEPATOBILIARY: Diff use hepatic steatosis. Hepatomegaly to 21 cm. No focal liver lesion. Unremarka ble gallbladder. SPLEEN: No splenomegaly. PANCREAS: No focal masses or ductal dilatation. ADRENALS: No adrenal nodules. KIDNEYS/URETERS: No hyd ronephrosis, stones, or solid mass lesions. PELVIC ORGANS/BLADDER: Unremarkabl e. PERITONEUM / RETROPERITONEUM: No free air or fluid. LYMPH NODES: No ly mphadenopathy. VESSELS: Unremarkable. GI TRACT: Sigmoid diverticulosis wi th focal area of wall thickening associated with several diverticulum in the m id sigmoid colon with adjacent pericolonic fat stranding. Small foci of extral uminal free air (series 2 image 77). No focal drainable fluid collection. BONES AND SOFT TISSUES: No acute osseous injury. No suspicious lytic or blastic lesions. IMPRESSION: Acute sigmoid diverticulitis with small foci of extraluminal air anteriorly consistent with perforation. No drainable divertic ular abscess. Hepatomegaly and diffuse hepatic steatosis. Signed by: Mimi Heath MD on 03/21/2019 8:55 AM Dictated By: NORMAN HEATH MD Electronic ally Signed By: [place] [address] Transcribed By: MICHELINE on 03/21 COPY TO: KATHARINA GOTTI MD Lactic Acid Ualqs6204-66-98 07:54:00* Test Item Value Reference Range Interpretation Comments Lactic Acid Level (test code = Lactic Acid Level) 1.0 0.5- 2.0 [facility]
--- NOTE | 2020-02-26 17:16 | Emergency Department Note ---
History of Present Illnes History of Present Illness Chief Complaint: COVID PUI History of Present Illness This is a 39 year old male Patient in from home with complaints of cough and shortness of breath at home. Patient reports that he tested positive for Covid 19 last Tuesday02/18/20. Patient states that he has been taking prednisone and breathing treatments at home and has kept his oxygen levels up but today he states that his home finger pulse ox was reading 88%. In triage the patient is 97% on room air and is not in any acute respiratory distress. Patient does have a history of asthma and feels that the virus has made his asthma worse. Historian: Patient Arrival Mode: Car Visual Merchandising Assistant Required: No Onset (how long ago): day(s) (12) Radiation: Reports non-radiation Severity: moderate Onset quality: gradual Timing of current episode: intermittent Progression: waxing and waning Chronicity: new Relieving factors: none Exacerbating factors: none Associated symptoms: Reports cough, Reports fever/chills, Reports headaches, Reports shortness of breath, Reports other (BODY ACHES) Past Medical/Family History Physician Review I have reviewed the patient's past medical and family history. Any updates have been documented here. Past Medical History Recent Fever: No Clinical Suspicion of Infectio: No New/Unexplained Change in Ment: No Past Medical History: Asthma Other Medical History: DIVERTICULITIS Gout Past Surgical History: Back Surgery, Orthopedic Implants Other Surgery: LOWER BACK .RIGHT AND LEFT FOOT SURGERY Social History Smoking Cessation: Never Smoker Counseling Performed: No Alcohol Use: Occasional Any Illegal Drug Use: No TB Exposure/Symptoms: No Physically hurt or threatened: No Family History Family history of heart diseas: No Other Last Tetanus: UTD Any Pre-Existing Lines (PICC,: No Review of Systems Review of Systems Constitutional: Reports chills, Reports fever, Reports malaise EENTM: Reports no symptoms Cardiovascular: Reports no symptoms Respiratory: Reports as per HPI Gastrointestinal: Reports no symptoms Genitourinary: Reports no symptoms Musculoskeletal: Reports no symptoms Integumentary: Reports no symptoms Neurological: Reports no symptoms Psychological: Reports no symptoms Endocrine: Reports no symptoms Hematological/Lymphatic: Reports no symptoms Physical Exam Related Data Allergies: Coded Allergies: No Known Allergies (Unverified , 03/21/19) Triage Vital Signs Vital Signs Date Time Temp Pulse Resp B/P (MAP) Pulse Ox O2 Delivery O2 Flow Rate FiO2 02/26/20 16:26 99.2 93 18 116/74 97 Room Air Vital signs reviewed: Yes Physical Exam CONSTITUTIONAL Constitutional: Present well-developed, Present well-nourished HENT HENT: Present normocephalic, Present atraumatic, Present oropharynx clear/moist, Present nose normal HENT L/R: Present left ext ear normal, Present right ext ear normal EYES Eyes: Reports PERRL, Reports conjunctivae normal NECK Neck: Present ROM normal PULMONARY Pulmonary: Present effort normal, Present breath sounds normal CARDIOVASCULAR Cardiovascular: Present regular rhythm, Present heart sounds normal, Present capillary refill normal, Present normal rate GASTROINTESTINAL Abdominal: Present soft, Present nontender, Present bowel sounds normal GENITOURINARY Genitourinary: Present exam deferred SKIN Skin: Present warm, Present dry MUSCULOSKELETAL Musculoskeletal: Present ROM normal NEUROLOGICAL Neurological: Present alert, Present oriented x 3, Present no gross motor or sensory deficits PSYCHOLOGICAL Psychological: Present mood/affect normal, Present judgement normal Assessment & Plan Medical Decision Making MDM COVID AND ASTHMA, LOOKS GOOD, NORMAL O2 SAT Reassessment Reassessment I PRESCRIBED A NEBULIZER AND ALBUTEROL SOLN (PT HAS MDI BUT SAYS HE FEELS A NEBULIZER WILL WORK BETTER & IS ISOLATING IN 1 ROOM AT HOUSE, 1 BATHROOM). CONTINUE OTHER MEDS, CONTINUE PRONING. RTED PRN Assessment & Plan Final Impression: (1) COVID-19 Depart Disposition: HOME, SELF-CARE Last Vital Signs Date Time Temp Pulse Resp B/P (MAP) Pulse Ox O2 Delivery O2 Flow Rate FiO2 02/26/20 16:26 99.2 93 18 116/74 97 Room Air Home Meds Reported Medications Amoxicillin/Potassium Clav (AUGMENTIN 500-125 TABLET) 1 Each Tablet, 500 MG PO Q8H, #42 TAB 03/25/19 Prednisone (PREDNISONE) 10 Mg Tab, 20 MG PO TID PRN for MODERATE PAIN (4-6), TAB 03/22/19 ZHOU OJEDA MD Feb 26, 2020 17:16
== END 2020-02-26 17:21 | disposition home or self-care (01) ==
LOC: ER 17:03
DX: U07.1 COVID-19 (principal); R05 Cough; R06.02 Shortness of breath; J45.909 Unspecified asthma, uncomplicated; Z87.19 Personal history of other diseases of the digestive system
CPT/HCPCS: 99283

== ENCOUNTER 2021-07-29 21:41 | Emergency (ER) | payer OTHER ==
[~2021-07-29] VITALS: Ht 177.8 cm; Wt 102.1 kg
[2021-07-29 22:02] LABS: BASOPHILS # (AUTO) 0.1 (0.0-0.1); BASOPHILS % 0.6 % (0.0-1.0); EOSINOPHILS # (AUTO) 0.1 (0.0-0.4); EOSINOPHILS % 1.3 % (0.0-6.0); HEMOGLOBIN 14.6 g/dL (14.0-18.0); LYMPHOCYTES # (AUTO) 2.6 (1.0-3.2); LYMPHOCYTES % 33.4 % (18.0-39.1); MEAN CORPUSCULAR HEMOGLOBIN 31.2 pg (28-32); MEAN CORPUSCULAR VOLUME 91.9 fL (81-99); MONOCYTES # (AUTO) 0.7 (0.2-0.8); MONOCYTES % 8.3 % (4.4-11.3); NEUTROPHILS # (AUTO) 4.4 (2.1-6.9); NEUTROPHILS % 56.1 % (38.7-80.0); PLATELET COUNT 283 x10e3/uL (140-360); RED BLOOD COUNT 4.68 x10e6/uL (4.3-5.7); RED CELL DISTRIBUTION WIDTH 11.9 % (11.7-14.4)
[2021-07-29 22:19] LABS: ALBUMIN 4.4 g/dL (3.5-5.0); ALBUMIN/GLOBULIN RATIO 1.5 (0.8-2.0); ANION GAP 13.8 mmol/L (8-16); CALCIUM 10.1 mg/dL (8.4-10.2); CREATININE, SERUM 1.27 mg/dL (0.72-1.25); POTASSIUM 3.8 mmol/L (3.5-5.1)
[2021-07-30 00:25] LABS: CREATINE KINASE MB 0.9 ng/mL (0-5.0)
[2021-07-30 00:40] VITALS: BP 129/83
== END 2021-07-30 00:41 | disposition home or self-care (01) ==
LOC: ER 21:46
DX: F41.9 Anxiety disorder, unspecified (principal); R03.0 Elevated blood-pressure reading, without diagnosis of hypertension; J45.909 Unspecified asthma, uncomplicated; M10.9 Gout, unspecified; R94.31 Abnormal electrocardiogram [ECG] [EKG]; Z87.19 Personal history of other diseases of the digestive system
CPT/HCPCS: 36415; 80053; 82550; 82553; 84484; 85025; 93005; 99284